=== PATIENT | female | born 1970 | race Caucasian/White ===

== ENCOUNTER 2021-12-20 19:47 | Emergency (ER) | payer OTHER ==
[2021-12-20 20:34] LABS: BASOPHIL 0.4 % (0-2); EOSINOPHIL 1.7 % (0-5); HCT 35.4 % (37.0-47.0); HGB 10.8 g/dl (12.5-16.0); LYMPHOCYTE 38.9 % (15-48); MCH 24.7 pg (25.0-31.0); MCHC 30.5 g/dL (32.0-36.0); MONOCYTE 9.2 % (0-12); MPV 10.5 fL (6.0-9.5); NEUTROPHIL 49.5 % (41-80); NRBC 0; PLT 407 K/uL (150-400); RBC 4.37 M/uL (4.20-5.40); RDW 15.6 % (11.5-14.0); WBC 7.6 K/uL (4.0-10.5)
[2021-12-20 20:57] LABS: BUN 19 mg/dL (7-18); CHLORIDE 104 mmol/L (98-107); CO2 (BICARBONATE) 27 mmol/L (21-32); CREATININE 0.76 mg/dL (0.51-0.95); GLUCOSE 120 mg/dL (74-106); MAGNESIUM 2.3 mg/dL (1.8-2.4); POTASSIUM 3.8 mmol/L (3.5-5.1)
[2021-12-20 21:33] LABS: INR 1.61 (0.9-1.2); PROTHROMBIN TIME 18.4 SECONDS (11.8-13.4); PTT 32.3 SECONDS (24.4-34.7)
[2021-12-20 22:53] LABS: CORONAVIRUS 2019 SARS-COV-2 NEGATIVE (NEGATIVE); INFLUENZA A NAA NEGATIVE (NEGATIVE)
== END 2021-12-20 22:10 | disposition home or self-care (01) ==
LOC: FER 19:47
PROVIDERS: Emergency Medicine; Nurse Practitioner Family
DX: M79.602 Pain in left arm (principal); R68.84 Jaw pain; R79.1 Abnormal coagulation profile; I69.951 Hemiplegia and hemiparesis following unspecified cerebrovascular disease affecting right dominant side; Z20.822 Contact with and (suspected) exposure to COVID-19; Z79.01 Long term (current) use of anticoagulants; Z91.041 Radiographic dye allergy status
CPT/HCPCS: 36415; 71045; 80048; 83735; 84484; 85025; 85610; 85730; 93005; U0002